=== PATIENT | female | born 1980 | race Caucasian/White ===

== ENCOUNTER 2019-01-31 20:42 | Emergency (ER) | payer SELFPAY ==
[2019-01-31] MEDS ORDERED: PROMETHAZINE HCL INJ 25 MG in SODIUM CHLORIDE 0.9% 50ML 50 ML IVPB ONE (20:47)
[2019-01-31] MEDS ORDERED: HYDROcodone 5MG/APAP 325MG 1 EA TAB PO ONE (20:47)
[2019-01-31] MEDS ORDERED: SODIUM CHLORIDE 0.9% 1000ML 1,000 ML IVS ONE (20:48)
[2019-01-31] MEDS ORDERED: NALOXONE HCL INJ 0.4 MG/ML VIAL ONE (21:18)
[2019-01-31] MEDS ORDERED: NALOXONE HCL INJ 0.4 MG/ML VIAL IV ONE (21:21)
--- NOTE | 2019-01-31 21:24 | RAD ---
EXAM: XR Abdomen, 2 Views and XR Chest, 1 View CLINICAL HISTORY: nvd TECHNIQUE: Frontal view of the chest, frontal view of the abdomen/pelvis and upright or decubitus view of the abdomen. COMPARISON: No relevant prior studies available. FINDINGS: Limitations: None. Lungs: Unremarkable. No consolidation. Pleural space: Unremarkable. No pneumothorax. Heart: Unremarkable. No cardiomegaly. Mediastinum: Unremarkable. Intraperitoneal space: No free air. Gastrointestinal tract: Moderate to large amounts of colonic stool. No distention. No radiopaque foreign body. Bones/joints: Unremarkable. IMPRESSION: No acute findings in the chest, abdomen or pelvis. Electronically signed by: Chaparrita Cordero MD 01/31/2019 9:22 PM CDT
[2019-01-31] MEDS ORDERED: SODIUM CHLORIDE 0.9% 50ML 50 ML ONE (22:01)
[2019-01-31] MEDS ORDERED: PROMETHAZINE HCL INJ 25 MG/ML VIAL ONE (22:01)
[2019-01-31] MEDS ORDERED: HEPARIN SODIUM 100 U/ML 5 ML SYG IV ONE (22:37)
--- NOTE | 2019-01-31 23:13 | ED.PDOC ---
History of Present Illness - General Chief Complaint: GI Problem Stated Complaint: N/V/D body aches, drug withdrawal Time Seen by Provider: 01/31/19 20:47 Source: patient Exam Limitations: no limitations - History of Present Illness Initial Comments: the patient is a 38-year-old female brought in by family secondary to concern for her going through withdrawals from coming off of Xanax and heroin. She apparently had a tonic-clonic type seizure as witnessed by family about 3 hours prior to arrival. The patient has had nausea vomiting diarrhea. She reports being markedly dehydrated. The patient has fairly lethargic.she is oriented 4. Timing/Duration: other - 12 hours Severity: moderate Improving Factors: nothing Worsening Factors: nothing Associated Symptoms: diaphoresis, loss of appetite, nausea/vomiting, seizure, weakness Allergies/Adverse Reactions: Allergies NO KNOWN ALLERGY Allergy (Verified 01/31/19 20:53) Home Medications: Ambulatory Orders Clonazepam [Clonazepam Odt] 1 mg PO BID PRN #7 tab 01/31/19 Ondansetron Odt [Zofran ODT] 4 mg PO Q8HR PRN #10 tab 01/31/19 Review of Systems - Review of Systems Constitutional: States: malaise EENTM: States: no symptoms reported Respiratory: States: no symptoms reported Cardiology: States: no symptoms reported Gastrointestinal/Abdominal: States: diarrhea, nausea, vomiting Genitourinary: States: no symptoms reported Musculoskeletal: States: back pain, muscle pain, neck pain Skin: States: see HPI Neurological: States: anxiety, depressed, emotional problems, headache Endocrine: States: excessive sweating All other Systems: No Change from Baseline Past Medical History (General) - Patient Medical History Hx Seizures: No Hx Stroke: No Hx Dementia: No Hx Asthma: No Hx of COPD: No Hx Cardiac Disorders: No Hx Congestive Heart Failure: No Hx Pacemaker: No Hx Hypertension: No Hx Thyroid Disease: No Hx Diabetes: No Hx Gastroesophageal Reflux: No Hx Renal Disease: No Hx Cancer: No Hx of HIV: No Hx Hepatitis C: No Hx MRSA: No Surgical History: no surgical history - Social History Hx Tobacco Use: Yes Family Medical History - Family History Mother Family History: Unknown Physical Exam - Physical Exam General Appearance: Lethargic - ut arousable to voice Eye Exam: bilateral normal Ears, Nose, Throat: hearing grossly normal, normal pharynx Neck: full range of motion, supple Respiratory: lungs clear, normal breath sounds, no respiratory distress, no accessory muscle use Cardiovascular/Chest: normal peripheral pulses, regular rate, rhythm - orderline tachycardia, no edema Peripheral Pulses: radial,right: 2+, radial,left: 2+, dorsalis pedis,right: 2+, dorsalis pedis,left: 2+ Gastrointestinal/Abdominal: non tender, soft Rectal Exam: deferred Back Exam: no CVA tenderness, no vertebral tenderness Extremity: non-tender, normal inspection, no pedal edema, normal capillary refill Neurologic: senior business development analyst II-XII nml as tested, oriented x 3 Skin Exam: diaphoresis Comments: Vital Signs - 24 hr 01/31/19 20:42 Temperature 99.9 F H Pulse Rate [ 110 H monitor] Respiratory 20 Rate Blood Pressure 142/103 [Left Arm] O2 Sat by Pulse 99 Oximetry Progress - Progress Progress: 01/31/19 23:25 the patient's 38-year-old female presenting in withdrawal from heroin and Xanax. She apparently had a seizure earlier in the day. She was given a dose of clonazepam here orally. She has not exhibited any seizures. She does have chills and tremors as well as diaphoresis. She has had some nausea but did receive a dose of Phenergan. she did receive a dose of tramadol to help reduce opiate withdrawal. Ultimately after multiple attempts were made, we were unable to obtain a peripheral IV and a central line in the right IJ position was placed. We were able to get a blood draw from this as well as get the Phenergan on board and a small amount of IV fluids before the patient demanded that it be removed and left AGAINST MEDICAL ADVICE. Laboratory work for the most part looks reassuring. Upon removal of the IJ, a [id number] suture had to be pl aced to stop bleeding as the patient would not wait for us to hold pressure. this will need to be removed in about 10 days. [facility] will be called in to [facility] for nausea and vomiting control. I will write her for 7 pills of clonazepam to be taken 1 every 12 hours until they run out to help reduce the likelihood of seizure activity due to Xanax withdrawal. She is to follow up with her primary care doctor or with a drug rehabilitation program as soon as possible. ER warnings were still given. benjie howard [id number] - Results/Orders Results/Orders: 01/31/19 20:49 URINE DRUG SCREEN, 7 ASSAY Stat UA [URINALYSIS] Stat patient refused 01/31/19 22:43 Chest,1 View [RAD] Stat chest x-ray was never done as the patient refused and have me remove the central line. She refused to have a chest x-ray after the central line was removed to confirm that there was no pneumothorax. Laboratory Results - last 24 hr 01/31/19 01/31/19 01/31/19 22:40 22:40 22:40 WBC 7.8 RBC 5.37 Hgb 15.6 Hct 45.7 MCV 85.2 MCH 29.1 MCHC 34.2 RDW 13.7 Plt Count 287 MPV 7.1 L Absolute Neuts (auto) 6.30 Absolute Lymphs (auto) 1.20 Absolute Monos (auto) 0.20 Absolute Eos (auto) 0.00 Absolute Basos (auto) 0.10 Neutrophils % 81.1 H Lymphocytes % 14.7 L Monocytes % 3.0 Eosinophils % 0.3 L Basophils % 0.9 Sodium 140 Potassium 3.7 Chloride 106 Carbon Dioxide 23 Anion Gap 14.7 BUN 13 Creatinine 0.59 L BUN/Creatinine Ratio 22.0 H Random Glucose 102 Serum Osmolality 279.7 Lactic Acid Calcium 9.2 Magnesium 2.0 Total Bilirubin 0.4 AST 20 ALT 17 Alkaline Phosphatase 72 Creatine Kinase 39 CK-MB (CK-2) 1.0 CK-MB (CK-2) % Not Reportable Troponin I < 0.02 B-Natriuretic Peptide 37.8 Serum Total Protein 7.6 Albumin 4.1 Globulin 3.5 Albumin/Globulin Ratio 1.2 Amylase 27 L Lipase 20 L Serum HCG, Qual 01/31/19 01/31/19 22:40 22:40 WBC RBC Hgb Hct MCV MCH MCHC RDW Plt Count MPV Absolute Neuts (auto) Absolute Lymphs (auto) Absolute Monos (auto) Absolute Eos (auto) Absolute Basos (auto) Neutrophils % Lymphocytes % Monocytes % Eosinophils % Basophils % Sodium Potassium Chloride Carbon Dioxide Anion Gap BUN Creatinine BUN/Creatinine Ratio Random Glucose Serum Osmolality Lactic Acid 1.1 Calcium Magnesium Total Bilirubin AST ALT Alkaline Phosphatase Creatine Kinase CK-MB (CK-2) CK-MB (CK-2) % Troponin I B-Natriuretic Peptide Serum Total Protein Albumin Globulin Albumin/Globulin Ratio Amylase Lipase Serum HCG, Qual Negative Departure - Departure Clinical Impression: Opiate withdrawal, Moderate dehydration Benzodiazepine withdrawal Qualifiers: Complication of substance-induced condition: with unspecified complication Qualified Code(s): F13.239 - Sedative, hypnotic or anxiolytic dependence with withdrawal, unspecified Disposition: Left Against Medical Advice Condition: Poor Departure Forms: ED Discharge - Pt. Copy, Patient Portal Self Enrollment Instructions: Polysubstance Abuse (DC) Diet: regular diet Activity: increase activity as tolerated, other - Avoid drug use Prescriptions: Ondansetron Odt [Zofran ODT] 4 mg PO Q8HR PRN #10 tab PRN Reason: Nausea--Moderate Clonazepam [Clonazepam Odt] 1 mg PO BID PRN #7 tab PRN Reason: Anxiety Home Medications: Ambulatory Orders Clonazepam [Clonazepam Odt] 1 mg PO BID PRN #7 tab 01/31/19 Ondansetron Odt [Zofran ODT] 4 mg PO Q8HR PRN #10 tab 01/31/19
[2019-01-31] MEDS ORDERED: traMADol HCL 50 MG TAB PO ONE (23:18)
[2019-01-31] MEDS ORDERED: traMADol HCL 50 MG TAB ONE (23:19)
[2019-01-31 23:35] VITALS: BP 146/96; TEMP 99; O2SAT 100
== END 2019-01-31 23:25 | disposition left against medical advice (07) ==
LOC: ER 20:42
DX: F11.23 Opioid dependence with withdrawal (principal); F13.239 Sedative, hypnotic or anxiolytic dependence with withdrawal, unspecified; E86.0 Dehydration; R11.2 Nausea with vomiting, unspecified; R56.9 Unspecified convulsions; Z53.29 Procedure and treatment not carried out because of patient's decision for other reasons; Z87.891 Personal history of nicotine dependence
CPT/HCPCS: 36415; 74019; 80053; 82150; 82550; 82553; 83605; 83690; 83735; 83880; 84484; 84703; 85025; A4216; J1642; J2550; J7030